=== PATIENT | female | born 1940 | race Caucasian/White ===

== ENCOUNTER 2017-02-09 08:52 | Emergency (ER) | payer OTHER ==
[~2017-02-09] VITALS: Ht 162.6 cm; Wt 74.0 kg
[~2017-02-09 08:52] MED LIST: ASPI81TA82 PO; CALCCHW25 PO; LEVO75TA3 PO; LISI-360 PO; OMEP20TA39 PO; TAB-TAB PO; TYLE3 PO; ZOCO40TA PO
[2017-02-09 08:56] VITALS: BP 148/73; PULSE 102; RESP 16; TEMP 98.3; O2SAT 95
[2017-02-09] MEDS ORDERED: SIMV40TA PO (09:10)
[2017-02-09] MEDS ORDERED: LEVO75TA3 PO (09:10)
[2017-02-09] MEDS ORDERED: OMEP20TA PO (09:10)
[2017-02-09] MEDS ORDERED: LISI10TA3 PO (09:11)
[2017-02-09] MEDS ORDERED: TYLETAB34 PO (09:11)
[2017-02-09] MEDS ORDERED: ASPI81CH CHEW (09:12)
--- NOTE | 2017-02-09 09:12 | PD ---
HPI Chief Complaint: General Weakness Time Seen by Provider: 09:09 Travel History International Travel<30 days: No Contact w/Intl Traveler<30days: No Traveled to known affect area: No History of Present Illness HPI 76-year-old female with history of hypertension, high cholesterol, hypothyroidism, presents to the ER today because she states that over last 2 days she has had palpitations, cramping in her legs, arms, up the neck, and nausea. She denies any new medications, increase in caffeinated substances, or any other new intake. She denies any chest pains, shortness of breath, vomiting , diarrhea, or any other symptoms. She states that the symptoms seems to come and go and seems to be worse at night. Modifying Factors: None Associated Signs & Symptoms: Leg and arm cramps, nausea, palpitations Risk Factors: None PFSH Past Medical History High Cholesterol: Yes Diminished Hearing: No GERD: Yes Hypertension: Yes Thyroid Disease: Yes Tetanus Vaccination: < 5 Years Influenza Vaccination: No Past Surgical History Section: Yes (X 3) Cholecystectomy: Yes Social History Alcohol Use: No Tobacco Use: Yes (OCCASIONAL) Substance Use: No Allergies-Medications (Allergen,Severity, Reaction): Coded Allergies: Percocet (Unverified Allergy, Severe, Arrhythmias, 02/09/17) Reported Meds & Prescriptions Reported Meds & Active Scripts Active Reported Multivitamin Adults (Multiple Vitamins W/ Minerals) 1 Tab 1 Tab PO DAILY Aspirin 81 Mg Chew 81 Mg CHEW DAILY Tylenol-Codeine #3 (Acetaminophen-Codeine) 300-30 mg Tab 1 Tab PO Q4H PRN Lisinopril 10 Mg Tab 10 Mg PO DAILY Levothyroxine (Levothyroxine Sodium) 75 Mcg Tab 75 Mcg PO DAILY Omeprazole 20 Mg Tab 20 Mg PO DAILY Simvastatin 40 Mg Tab 40 Mg PO HS Review of Systems Except as stated in HPI: all other systems reviewed are Neg Physical Exam Narrative GENERAL: Well-developed, pleasant elderly white female patient in no acute distress. Awake, alert, oriented 3. SKIN: Warm and dry. HEAD: Atraumatic. Normocephalic. EYES: Pupils equal and round. No scleral icterus. No injection or drainage. ENT: No nasal bleeding or discharge. Mucous membranes pink and moist. NECK: Trachea midline. No JVD. CARDIOVASCULAR: Regular rate and rhythm. No murmur appreciated. RESPIRATORY: No accessory muscle use. Clear to auscultation. Breath sounds equal bilaterally. GASTROINTESTINAL: Abdomen soft, non-tender, nondistended. Hepatic and splenic margins not palpable. MUSCULOSKELETAL: No obvious deformities. No clubbing. No cyanosis. No edema. NEUROLOGICAL: Awake and alert. No obvious cranial nerve deficits. Motor grossly within normal limits. Normal speech. PSYCHIATRIC: Appropriate mood and affect; insight and judgment normal. Data Data Last Documented VS Vital Signs Date Time Temp Pulse Resp B/P Pulse Ox O2 Delivery O2 Flow Rate FiO2 02/09/17 10:17 99 Room Air 02/09/17 10:17 88 16 119/75 02/09/17 08:56 98.3 Orders Electrocardiogram (02/09/17 09:09) Ckmb (Isoenzyme) Profile (02/09/17 09:09) Complete Blood Count With Diff (02/09/17 09:09) Comprehensive Metabolic Panel (02/09/17 09:09) Magnesium (Mg) (02/09/17 09:09) Prothrombin Time / Inr (Pt) (02/09/17 09:09) Act Partial Throm Time (Ptt) (02/09/17 09:09) Troponin I (02/09/17 09:09) Chest, Single Ap (02/09/17 09:09) Ecg Monitoring (02/09/17 09:09) Bilateral Bp Monitoring (02/09/17 09:09) Iv Access Insert/Monitor (02/09/17 09:09) Oximetry (02/09/17 09:09) Oxygen Administration (02/09/17 09:09) Sodium Chloride 0.9% Flush (Ns Flush) (02/09/17 09:15) Labs Laboratory Tests Test 02/09/17 09:27 White Blood Count 9.9 TH/MM3 Red Blood Count 5.31 MIL/MM3 Hemoglobin 14.9 GM/DL Hematocrit 45.8 % Mean Corpuscular Volume 86.2 FL Mean Corpuscular Hemoglobin 28.1 PG Mean Corpuscular Hemoglobin 32.6 % Concent Red Cell Distribution Width 12.9 % Platelet Count 272 TH/MM3 Mean Platelet Volume 8.7 FL Neutrophils (%) (Auto) 85.2 % Lymphocytes (%) (Auto) 8.4 % Monocytes (%) (Auto) 5.4 % Eosinophils (%) (Auto) 0.9 % Basophils (%) (Auto) 0.1 % Neutrophils # (Auto) 8.5 TH/MM3 Lymphocytes # (Auto) 0.8 TH/MM3 Monocytes # (Auto) 0.5 TH/MM3 Eosinophils # (Auto) 0.1 TH/MM3 Basophils # (Auto) 0.0 TH/MM3 CBC Comment DIFF FINAL Differential Comment Prothrombin Time 11.0 SEC Prothromb Time International 1.0 RATIO Ratio Activated Partial 26.6 SEC Thromboplast Time Sodium Level 142 MEQ/L Potassium Level 3.9 MEQ/L Chloride Level 107 MEQ/L Carbon Dioxide Level 24.2 MEQ/L Anion Gap 11 MEQ/L Blood Urea Nitrogen 22 MG/DL Creatinine 0.97 MG/DL Estimat Glomerular Filtration 56 ML/MIN Rate Random Glucose 132 MG/DL Calcium Level 8.7 MG/DL Magnesium Level 1.8 MG/DL Total Bilirubin 1.5 MG/DL Aspartate Amino Transf 22 U/L (AST/SGOT) Alanine Aminotransferase 27 U/L (ALT/SGPT) Alkaline Phosphatase 81 U/L Total Creatine Kinase 77 U/L Troponin I LESS THAN 0.02 NG/ML Total Protein 7.6 GM/DL Albumin 3.8 GM/DL MDM Medical Decision Making Medical Screen Exam Complete: Yes Emergency Medical Condition: Yes Medical Record Reviewed: Yes Interpretation(s) EKG shows NSR, no ST elevation or depression, and no arrhythmias. No significant T-wave inversions. Laboratory Tests Test 02/09/17 09:27 Red Blood Count 5.31 MIL/MM3 (4.00-5.30) Neutrophils (%) (Auto) 85.2 % (16.0-70.0) Lymphocytes (%) (Auto) 8.4 % (9.0-44.0) Neutrophils # (Auto) 8.5 TH/MM3 (1.8-7.7) Lymphocytes # (Auto) 0.8 TH/MM3 (1.0-4.8) Blood Urea Nitrogen 22 MG/DL (7-18) Estimat Glomerular Filtration 56 ML/MIN (>89) Rate Random Glucose 132 MG/DL (74-106) Total Bilirubin 1.5 MG/DL (0.2-1.0) Troponin I LESS THAN 0.02 NG/ML (0.02-0.05) Last 24 hours Impressions Chest X-Ray 02/09/17 0909 Signed Impressions: Service Date/Time: Thursday, February 09, 2017 09:31 - CONCLUSION: Mild consolidation or atelectasis at the left lateral base. Jonathon Hendrix MD Differential Diagnosis Palpitations, leg and arm cramps, nauseaelectrolyte abnormalities versus dysrhythmias versus dehydration versus muscle spasms Narrative Course Chest x-ray shows a questionable left lower lung atelectasis versus infiltrate. Patient does not report any shortness of breath. However, on further questioning, she states she has an intermittent cough that the rest of the family has had as well. As precaution, my plan would be to put her on antibiotics for possible developing pneumonia. However, I do not see any electrolyte abnormalities or dysrhythmias. Vital signs are stable. At this point, my plan would be to release her with an antibiotic and close follow-up to primary care physician. Return for any worsening in symptoms as needed. The plan has discussed with her and she states understanding. Diagnosis Primary Impression: Palpitations Additional Impression: Muscle spasm Med/Other Pt SpecificInfo: Prescription(s) given Scripts Levofloxacin (Levaquin)750 Mg [id number] Mg PO DAILY #5 TAB Ref 0 Prov:Gerard Silva MD 02/09/17 Disposition: 01 DISCHARGE HOME Condition: Stable Gerard Silva MD Feb 09, 2017 09:12
[2017-02-09] MEDS ORDERED: MULT1TAB84 PO (09:13)
[2017-02-09] MEDS ORDERED: SODIUM CHLORIDE 0.9% FLUSH 5 ML FLUSH IVF PRN (09:15)
[2017-02-09 09:30] VITALS: RESP 18; O2SAT 99
[2017-02-09 09:33] VITALS: BP_SYST 111; BP_SYST 119; BP_DIAS 63; BP_DIAS 75; PULSE 94; RESP 16; O2SAT 99
--- NOTE | 2017-02-09 09:38 | RADHPO ---
EXAM DATE/TIME: 02/09/2017 09:31 [facility] COMPARISON: No previous studies available for comparison. INDICATIONS : Complains of leg cramps, shortness of breath, cough and heart palpitations. MEDICAL HISTORY : None. SURGICAL HISTORY : None. ENCOUNTER: Initial ACUITY: 2 weeks PAIN SCORE: 0/10 LOCATION: Bilateral chest FINDINGS: The heart size is normal. The aorta is elongated and calcified. There is a small area of focal increa sed density at the left lateral base. The right lung is clear. Spurs are seen in the thoracic spine. CONCLUSION: Mild consolidation or atelectasis at the left lateral base. Jonathon Hendrix MD on February 09, 2017 at 9:36 Board Certified Radiologist. This report was verified electronically.
[2017-02-09 09:44] LABS: AUTOMATED NEUTROPHIL # 8.5 TH/MM3 (1.8-7.7); BASOPHIL % 0.1 % (0.0-2.0); EOSINOPHIL # 0.1 TH/MM3 (0-0.4); EOSINOPHIL % 0.9 % (0.0-4.0); HEMATOCRIT 45.8 % (35.0-46.0); HEMO FLAGS DIFF FINAL; LYMPH % 8.4 % (9.0-44.0); LYMPHOCYTE # 0.8 TH/MM3 (1.0-4.8); MEAN CELL VOLUME 86.2 FL (80.0-100.0); MEAN CORPUSCULAR HEMOGLOBIN 28.1 PG (27.0-34.0); MEAN CORPUSCULAR HGB CONC 32.6 % (32.0-36.0); MONO % 5.4 % (0.0-8.0); NEUT % 85.2 % (16.0-70.0); PLATELET COUNT 272 TH/MM3 (150-450); RED BLOOD COUNT 5.31 MIL/MM3 (4.00-5.30); RED CELL DISTRIBUTION WIDTH 12.9 % (11.6-17.2); WHITE BLOOD COUNT 9.9 TH/MM3 (4.0-11.0)
[2017-02-09 09:50] LABS: APTT (PATIENT) 26.6 SEC (24.3-30.1)
[2017-02-09 09:53] LABS: BICARBONATE 24.2 MEQ/L (21.0-32.0); MAGNESIUM 1.8 MG/DL (1.5-2.5)
[2017-02-09 09:55] LABS: ANION GAP 11 MEQ/L (5-15); CHLORIDE 107 MEQ/L (98-107); POTASSIUM 3.9 MEQ/L (3.5-5.1); SODIUM (NA) 142 MEQ/L (136-145)
[2017-02-09 09:56] LABS: ALT (GPT) 27 U/L (10-53)
[2017-02-09 09:57] LABS: GLOMERULAR FILTRATION RATE 56 ML/MIN (>89)
[2017-02-09 09:58] LABS: TOTAL BILIRUBIN ADULT 1.5 MG/DL (0.2-1.0)
[2017-02-09 10:01] LABS: ALKALINE PHOSPHATASE 81 U/L (45-117)
[2017-02-09 10:08] LABS: CREATINE KINASE 77 U/L (26-192)
[2017-02-09 10:17] VITALS: BP 119/75; PULSE 88; RESP 16; O2SAT 99
[2017-02-09 10:17] LABS: AST (GOT) 22 U/L (15-37); BLOOD UREA NITROGEN 22 MG/DL (7-18)
[2017-02-09] MEDS ORDERED: LEVA750T PO (10:25)
--- NOTE | 2017-02-09 19:37 | EKG ---
Date Performed: 02/09/2017 Time Performed: 09:12:04 PTAGE: 76 years EKG: Sinus rhythm Normal ECG NO PREVIOUS TRACING DOCTOR: Asai Mac Interpretating Date/Time 02/09/2017 19:36:17
== END 2017-02-09 10:40 | disposition home or self-care (01) ==
LOC: PHED 08:52
DX: R00.2 Palpitations (principal); M62.838 Other muscle spasm; I10 Essential (primary) hypertension; E78.00 Pure hypercholesterolemia, unspecified; E03.9 Hypothyroidism, unspecified; R11.0 Nausea; Z72.0 Tobacco use
CPT/HCPCS: 71010; 80053; 82550; 83735; 84484; 85025; 85610; 85730; 93005

== ENCOUNTER 2017-12-12 20:59 | Emergency (ER) | payer OTHER ==
[~2017-12-12] VITALS: Ht 165.1 cm; Wt 74.0 kg
[~2017-12-12 20:59] MED LIST changes: +ASPI-516 CHEW; -ASPI81TA82 PO; -CALCCHW25 PO; +LEVA750T PO; -LISI-360 PO; +LISI10TA3 PO; +MULT1TAB84 PO; -OMEP20TA39 PO; +OMEP20TA93 PO; +SIMV40TA PO; -TAB-TAB PO; -TYLE3 PO; +TYLETAB34 PO; -ZOCO40TA PO
[2017-12-12 21:14] VITALS: BP 149/81; PULSE 100; RESP 20; TEMP 99.6; O2SAT 96
--- NOTE | 2017-12-12 21:41 | PD ---
HPI Chief Complaint: Cold / Flu Symptoms Time Seen by Provider: 21:37 Travel History International Travel<30 days: No Contact w/Intl Traveler<30days: No Traveled to known affect area: No History of Present Illness HPI 77-year-old female presents to the emergency department by private transportation the care of family for evaluation of fever chills cough congestion myalgias and arthralgias. Symptoms began last evening. Patient decided to come to the emergency room because she is afraid she has flu. Patient is also treated for possible pneumonia and early October was treated with azithromycin and prednisone. Because of having a cough she is also fearful she has a recurrent pneumonia. Patient denies other concerns or complaints. Patient has been using NyQuil. Patient is not taking any acetaminophen or ibuprofen for fever. PFSH Past Medical History Narrative Medical High cholesterol hypertension hypothyroidism and cholecystectomy tobaccoism; nursing notes reviewed High Cholesterol: Yes Diminished Hearing: No GERD: Yes Hypertension: Yes Thyroid Disease: Yes Past Surgical History Section: Yes (X 3) Cholecystectomy: Yes Hysterectomy: Yes Social History Alcohol Use: No Tobacco Use: Yes (OCCASIONAL) Substance Use: No Allergies-Medications (Allergen,Severity, Reaction): Coded Allergies: acetaminophen (Unverified Allergy, Severe, Arrhythmias, 12/12/17) PT denies allergy oxycodone (Unverified Allergy, Severe, Arrhythmias, 12/12/17) Comments Patient has no allergy to acetaminophen when she has taken oxycodone in the past for causes palpitations she verifies that she is not allergic to acetaminophen she's actually been taking acetaminophen without adverse reaction. Reported Meds & Prescriptions Reported Meds & Active Scripts Active Tamiflu (Oseltamivir Phosphate) 75 Mg Cap 75 Mg PO BID 5 Days Reported Aspirin 81 Mg Chew 81 Mg CHEW DAILY Lisinopril 10 Mg Tab 10 Mg PO DAILY Levothyroxine (Levothyroxine Sodium) 75 Mcg Tab 75 Mcg PO DAILY Omeprazole 20 Mg Tab 20 Mg PO DAILY Simvastatin 40 Mg Tab 40 Mg PO HS Review of Systems Except as stated in HPI: all other systems reviewed are Neg Physical Exam Narrative GENERAL: Well-developed well-nourished female in no acute distress no respiratory distress SKIN: Warm and dry. HEAD: Normocephalic. EYES: No scleral icterus. No injection or drainage. NECK: Supple, trachea midline. No JVD or lymphadenopathy. CARDIOVASCULAR: Regular rate and rhythm without murmurs, gallops, or rubs. RESPIRATORY: Breath sounds equal bilaterally. No accessory muscle use. GASTROINTESTINAL: Abdomen soft, non-tender, nondistended. MUSCULOSKELETAL: No cyanosis, or edema. BACK: Nontender without obvious deformity. No CVA tenderness. Data Data Last Documented VS Vital Signs Date Time Temp Pulse Resp B/P (MAP) Pulse Ox O2 Delivery O2 Flow Rate FiO2 12/12/17 21:14 99.6 100 20 149/81 (103) 96 Orders Orders Influenzae A/B Antigen (12/12/17 21:37) Chest, Pa & Lat (12/12/17 ) Acetaminophen (Tylenol) (12/12/17 21:45) Oseltamivir (Tamiflu) (12/12/17 22:45) Ed Discharge Order (12/12/17 22:38) [facility] Medical Decision Making Medical Screen Exam Complete: Yes Emergency Medical Condition: Yes Medical Record Reviewed: Yes Interpretation(s) INFLUENZA ag: pos A Last Impressions Chest X-Ray 12/12/17 0000 Signed Impressions: Service Date/Time: Tuesday, December 12, 2017 21:42 - CONCLUSION: No acute disease. Jorden Gonzalez Jr., MD Vital Signs Date Time Temp Pulse Resp B/P (MAP) Pulse Ox O2 Delivery O2 Flow Rate FiO2 12/12/17 21:14 99.6 100 20 149/81 (103) 96 Differential Diagnosis Influenza bronchitis pneumonia Narrative Course Flu specimen collected Chest x-ray performed Flu positive and chest x-ray reveals no evidence of a pneumonia Patient given first dose of Tamiflu in the emergency department Patient is stable for outpatient management and follow-up with primary care provider Diagnosis Primary Impression: Influenza A Referrals: Primary Care Physician call for appointment Patient Instructions: General Instructions Additional Instructions: Take Tamiflu to help shorten course of viral syndrome Increase fluid hydration Take acetaminophen/Tylenol every 4 hours as needed for fever 100.4F or greater May take ibuprofen 600 mg as often as every 6 hours for fever 100.4F or greater follow-up with your primary care provider Return to the emergency department for any concerns or change in condition Med/Other Pt SpecificInfo: Prescription(s) given Scripts Oseltamivir (Tamiflu) 75 Mg Cap 75 MG PO BID for Mgmt Viral Infection for 5 Days, #10 CAP 0 Refills Prov: Jessi Ambrocio MD 12/12/17 Disposition: 01 DISCHARGE HOME Condition: Stable Jessi Ambrocio MD Dec 12, 2017 21:41
[2017-12-12] MEDS ORDERED: ACETAMINOPHEN 325 MG TAB PO ONE (21:45)
--- NOTE | 2017-12-12 22:21 | RADRPT ---
EXAM DATE/TIME: 12/12/2017 21:42 [facility] COMPARISON: No previous studies available for comparison. INDICATIONS : Fever, cough. MEDICAL HISTORY : None. SURGICAL HISTORY : None. ENCOUNTER: Initial ACUITY: 2 days PAIN SCORE: 0/10 LOCATION: Bilateral chest FINDINGS: PA and lateral views of the chest demonstrate the lungs to be symmetrically aerated without evidence of mass, infiltrate or effusion. The cardiomediastinal contours are unremarkable. Osseous structure s are intact. CONCLUSION: No acute disease. Jorden Gonzalez Jr., MD on December 12, 2017 at 22:18 Board Certified Radiologist. This report was verified electronically.
[2017-12-12] MEDS ORDERED: OSEL75 PO (22:34)
[2017-12-12] MEDS ORDERED: OSELTAMIVIR PHOSPHATE 75 MG CAP PO ONE (22:45)
== END 2017-12-12 22:51 | disposition home or self-care (01) ==
LOC: PHEFT 20:59
DX: J09.X2 Influenza due to identified novel influenza A virus with other respiratory manifestations (principal); I10 Essential (primary) hypertension; E78.00 Pure hypercholesterolemia, unspecified; E03.9 Hypothyroidism, unspecified; K21.9 Gastro-esophageal reflux disease without esophagitis; Z72.0 Tobacco use; Z90.49 Acquired absence of other specified parts of digestive tract; Z88.5 Allergy status to narcotic agent; Z79.82 Long term (current) use of aspirin; Z79.899 Other long term (current) drug therapy
CPT/HCPCS: 71046; 87804; 99284